=== PATIENT | female | born 1975 | race Caucasian/White ===

== ENCOUNTER 2024-06-01 09:44 | Day surgery (SDC) | payer OTHER, SELFPAY ==
[2024-05-30 09:36] VITALS: BMI 23.6
[2024-06-01 11:19] VITALS: BMI 22.8
[2024-06-01 11:30] VITALS: BP 99/67; PULSE 59; RESP 15; TEMP 36.5; O2SAT 98
[2024-06-01] MEDS: Lactated Ringers 1,000 ML 100 ML IVCONT (11:41)
--- NOTE | 2024-06-01 13:20 | P.CONAN_ITS ---
Documented by User: Sharon Knox NP 05/31/24 10:13 HPI - Anesthesia Eval Consult details Narrative: 48yo F for Right Lateral Rectus Eye Muscle Recession,Left lateral Recession,Left Medial Rectus Resection Medically optimized per PCP [facility] Past Medical History Medical History History of traumatic head injury Opioid abuse, in remission Lumbar spondylosis Insomnia Ataxia Smoker Anxiety Depression Back pain Surgical History Surgical History Hx of tracheostomy Hx of nasal septoplasty Hx of tubal ligation H/O colonoscopy History of hip surgery Social History Social History (Updated 05/30/24 @ 09:35 by Trina Viveros RN) Patient Tobacco Use Status: Current everyday Tobacco user Tobacco use type: Cigarette Cigarette Packs Per Day: 0.3 Cigarettes Per Day: 4 Years Smoked: 33 Use of substances other than those prescribed or required for medical reasons: No Substance Use Type: Crack/Cocaine, Former Substance User and Opiates Are you DNR?: No Advance Directives: No Advance Directives Information Provided: Yes Meds Allergies Allergy/AdvReac Type Severity Reaction Status Date / Time No Known Allergies Allergy Unverified 08/09/20 16:27 Home Medications ?Medication ?Instructions ?Recorded ?Confirmed ?Last Taken ?Type cyclobenzaprine 5 mg tablet 5 mg PO BEDTIME PRN muscle spasm 05/30/24 06/01/24 Unknown History hydroxyzine HCl 25 mg tablet 25 mg PO BEDTIME PRN anxiety 05/30/24 06/01/24 Unknown History multivitamin 1 tab PO DAILY 05/30/24 06/01/24 Unknown History sertraline 100 mg tablet 100 mg PO DAILY 05/30/24 06/01/24 Unknown History trazodone 50 mg tablet 50 mg PO NEEDED insomnia 05/30/24 06/01/24 Unknown History biotin 10,000 mcg chewable tablet 20,000 mcg PO DAILY 06/01/24 06/01/24 Unknown History (Hair, Skin and Nails (biotin)) Exam Height,Weight and Vital Signs: Height 5 ft 3 in Weight 60.328 kg Assessment and Plan Assessment Anesthesia Assessment: Chart Reviewed Documented by User: Saira Infante DO 06/01/24 13:40 HPI - Anesthesia Eval Consult details Narrative: 48yo F for Right Lateral Rectus Eye Muscle Recession,Left lateral Recession,Left Medial Rectus Resection Medically optimized per PCP Hx of opioid abuse, in remission. Had tracheostomy in the past after subarachnoid bleed with left hemiparesis. [facility] Past Medical History Medical History History of traumatic head injury Opioid abuse, in remission Lumbar spondylosis Insomnia Ataxia Smoker Anxiety Depression Back pain Family History Family history of problems with anesthesia: No Surgical History Surgical History Hx of tracheostomy Hx of nasal septoplasty Hx of tubal ligation H/O colonoscopy History of hip surgery History of Problems with Anesthesia: No Social History Social History (Updated 05/30/24 @ 09:35 by Trina Viveros RN) Patient Tobacco Use Status: Current everyday Tobacco user Tobacco use type: Cigarette Cigarette Packs Per Day: 0.3 Cigarettes Per Day: 4 Years Smoked: 33 Use of substances other than those prescribed or required for medical reasons: No Substance Use Type: Crack/Cocaine, Former Substance User and Opiates Are you DNR?: No Advance Directives: No Advance Directives Information Provided: Yes Meds Allergies Allergy/AdvReac Type Severity Reaction Status Date / Time No Known Allergies Allergy Unverified 08/09/20 16:27 Home Medications ?Medication ?Instructions ?Recorded ?Confirmed ?Last Taken ?Type cyclobenzaprine 5 mg tablet 5 mg PO BEDTIME PRN muscle spasm 05/30/24 06/01/24 Unknown History hydroxyzine HCl 25 mg tablet 25 mg PO BEDTIME PRN anxiety 05/30/24 06/01/24 Unknown History multivitamin 1 tab PO DAILY 05/30/24 06/01/24 Unknown History sertraline 100 mg tablet 100 mg PO DAILY 05/30/24 06/01/24 Unknown History trazodone 50 mg tablet 50 mg PO NEEDED insomnia 05/30/24 06/01/24 Unknown History biotin 10,000 mcg chewable tablet 20,000 mcg PO DAILY 06/01/24 06/01/24 Unknown History (Hair, Skin and Nails (biotin)) Exam Exam Date and Time: June 01, 2024 1320 Height,Weight and Vital Signs: Height 5 ft 3 in Weight 60.328 kg Height 5 ft 3 in Weight 58.423 kg Vital Signs Temperature 97.7 F 06/01/24 11:30 Pulse Rate 59 06/01/24 11:30 Respiratory Rate 15 06/01/24 11:30 Blood Pressure 99/67 06/01/24 11:30 Pulse Oximetry 98 06/01/24 11:30 Oxygen Delivery Method Room Air 06/01/24 11:30 Temperature 97.7 F 06/01/24 11:30 Pulse Rate 59 06/01/24 11:30 Respiratory Rate 15 06/01/24 11:30 Blood Pressure 99/67 06/01/24 11:30 Pulse Oximetry 98 06/01/24 11:30 Oxygen Delivery Method Room Air 06/01/24 11:30 Airway Mallampati Class: I TM Dist: >3cm Neck ROM: Limited Loose/Missing/Broken Teeth: No (patient denies any loose or broken teeth) Heart: S1S2 Lungs: CTAB Assessment and Plan Assessment Anesthesia Assessment: Anesthesia Plan Discussed and Chart Reviewed Final Anesthetic Review Family History of Problems with Anesthesia: No History of Problems with Anesthesia: No NPO: Yes ASA Class: II Final Preanesthetic Review: No Changes in Pt Med Stat, Meds/Allgs Chart Reviewed, Consent Obtained/Reviewed and Anes Risks/Benef Reviewed Patient Risk: Low Procedure Risk: Low Anesthetic Plan Anesthetic Plan: GA and Agree w/ Assess. and Plan Disposition: Standard PACU
--- NOTE | 2024-06-01 13:35 | PC.NURSE ---
24hr update documented on paper
[2024-06-01 14:48] VITALS: BP 164/69; PULSE 85; RESP 16; TEMP 36.1; O2SAT 98
[2024-06-01 14:53] VITALS: BP 128/51; PULSE 70; RESP 18; O2SAT 97
[2024-06-01 14:58] VITALS: BP 119/66; PULSE 65; RESP 18; O2SAT 97
[2024-06-01 15:03] VITALS: BP 121/62; PULSE 62; RESP 16; O2SAT 98
[2024-06-01 15:18] VITALS: BP 105/58; PULSE 63; RESP 16; TEMP 36.6; O2SAT 97
--- NOTE | 2024-06-01 16:16 | P.OPHTHAL_ITS ---
Ophthalmology Operative Note Date of Service: 06/01/24 Narrative: Diagnosis exotropia. Procedures 1. Resection of left medial rectus muscle 9 mm. 2. Recession of right lateral rectus muscle [address] Harley. Anesthesia general. Complications none. The patient was brought to the operative room placed under general anesthesia. The eyes were prepped and draped in the usual sterile ophthalmic fashion. A lid speculum was placed in the left eye and peritomies were created around the lateral and medial rectus muscles. The lateral rectus muscle was found to be recessed approximately 12 mm and the medial rectus muscle was found to have been previously resected. The medial rectus was hooked and the overlying fascial attachments dissected free. An 9 mm resection was marked off with cautery and secured with a double-armed Vicryl suture. The distal muscle was resected and drawn forward to the original insertion. Conjunctiva was closed with interrupted Vicryl sutures. The lid speculum was transferred to the right eye where a peritomy was created around the lateral rectus muscle. The muscle was hooked and secured with a double- armed Vicryl suture. It was disinserted from the globe and reattached to a position 9 mm behind the original insertion. Conjunctiva was closed with interrupted Vicryl sutures. The patient was then awoken from general anesthesia and discharged to postoperative recovery in good condition.
== END 2024-06-01 15:42 | disposition home or self-care (01) ==
PROVIDERS: Visit Provider Ophthalmology
PROC: (CPT 67311; principal; 2024-06-01 12:10)
DX: H53.2 Diplopia (principal); H50.10 Unspecified exotropia; F51.01 Primary insomnia; R27.0 Ataxia, unspecified; J30.2 Other seasonal allergic rhinitis; M54.50 Low back pain, unspecified; G89.29 Other chronic pain; M47.816 Spondylosis without myelopathy or radiculopathy, lumbar region; F11.11 Opioid abuse, in remission; F32.A Depression, unspecified; F41.9 Anxiety disorder, unspecified; Z79.899 Other long term (current) drug therapy; F17.210 Nicotine dependence, cigarettes, uncomplicated; Z98.890 Other specified postprocedural states
CPT/HCPCS: 67311; J0131; J1100; J1596; J1885; J2250; J2371; J2405; J2704; J3010